=== PATIENT | female | born 2000 | race Hispanic/Latino ===

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

== ENCOUNTER 2022-04-29 19:06 | Emergency (ER) | payer SELFPAY ==
[2022-04-29 20:33] LABS: #Basophils 0.1 thou/uL (0.0-0.2); #Eosinphils 0.1 thou/uL (0.0-0.7); #Lymphocytes 1.7 thou/uL (1.20-3.40); #Monocytes 0.5 thou/uL (0.11-0.59); #Neutrophils 3.6 thou/uL (1.40-6.50); %Eosinophils 1.5 % (0.0-10.0); %Lymphocytes 28.7 % (21.0-51.0); %Monocytes 8.8 % (0.0-10.0); %Neutrophils 59.9 % (42.0-75.0); Hemoglobin 11.9 g/dL (12.0-16.0); Mean Corpuscular HGB CONC 32.3 g/dL (32.0-36.0); Mean Corpuscular Hemoglobin 26.3 pg (27.0-31.0); Mean Corpuscular Volume 81.3 fl (78.0-98.0); Mean Platelet Volume 9.9 fL (7.4-10.4); Platelet Count 207 thou/uL (130-400); RBC Distribution Width 12.8 % (11.5-14.5); Red Blood Cell (RBC) Count 4.54 mill/uL (4.20-5.40)
[2022-04-29 20:40] LABS: BHCG - Serum POSITIVE (NEGATIVE); Pregs Control Background? CLEAR/WHITE (CLR/WHITE); Pregs Control Bar Appear? YES (CONTROL BAR)
[2022-04-29] MEDS ORDERED: Ondansetron PF 4 MG/2 ML Vial ONE (20:44)
[2022-04-29] MEDS ORDERED: diphenhydrAMINE 50 MG/ML VIAL ONE (20:44)
[2022-04-29] MEDS ORDERED: Metoclopramide HCl 10 MG/2 ML VIAL ONE (20:44)
[2022-04-29 20:48] LABS: ALT (SGPT) 10 U/L (8-55); AST (SGOT) 14 U/L (5-34); Albumin 4.2 g/dL (3.5-5.0); Alkaline Phosphatase 53 U/L (40-110); Anion Gap 11 mmol/L (10-20); BUN (Urea Nitrogen) 6 mg/dL (7.0-18.7); Bilirubin, Total 0.4 mg/dL (0.2-1.2); Calc. Creatinine Clearance 0 mL/min (70-130); Calcium 8.9 mg/dL (7.8-10.44); Carbon Dioxide 22 mmol/L (22-29); Chloride 105 mmol/L (98-107); Estimated GFR 128; Glucose 134 mg/dL (70-105); Potassium 3.4 mmol/L (3.5-5.1); Protein, Total 7.2 g/dL (6.0-8.3); Sodium 135 mmol/L (136-145)
== END 2022-04-29 22:30 | disposition home or self-care (01) ==
LOC: ERS 19:06
DX: O99.351 Diseases of the nervous system complicating pregnancy, first trimester (principal); R51.9 Headache, unspecified; O99.331 Smoking (tobacco) complicating pregnancy, first trimester; F17.220 Nicotine dependence, chewing tobacco, uncomplicated; Z3A.01 Less than 8 weeks gestation of pregnancy
CPT/HCPCS: 36415; 80053; 84702; 84703; 85025; 96374; 96375; J1200; J2405; J2765